=== PATIENT | female | born 1990 | race Asian ===

== ENCOUNTER 2022-06-03 16:49 | Outpatient (CLI) | payer OTHER ==
--- NOTE | 2022-06-03 19:23 | Ultrasound Report ---
PROCEDURE: Pelvic w/Transvaginal INDICATIONS: ENDOMETRIAL POLYP TECHNIQUE: Real-time scanning was performed of the pelvic organs, with image documentation. Additional endovagi nal scanning was necessary due to incomplete visualization of the adnexal and endometrial structures by transabdominal scanning. COMPARISON: None. FINDINGS: Uterus: Uterus is anteverted and normal in size at 89 x 4.5 x 6.6 cm. The myometrium is homogeneous . The endometrium measures 5.4 mm in combined thickness. There is a echogenic structure within the endometrium measuring 7 x 3 x 8 mm, possibly representing an endometrial polyp. No duplex flow is francisco ntified within the possible polyp. Ovaries: The right ovary measures 2.8 x 1.7 x 3.2 cm, with a calculated ovarian volume of 7.9 cc. T he left ovary measures 2.4 x 2.6 x 2.4 cm, with a calculated ovarian volume of 7.8 cc. The ovaries h ave a normal sonographic appearance. Less than 12 follicles can be seen in each ovary. No adnexal m asses are seen. Other: No pathologic free abdominal or pelvic fluid. IMPRESSION: Suspect small endometrial polyp measuring 8 mm in maximum diameter. Reviewed by: Kevon Lagos MD on 06/03/2022 7:21 PM PDT Approved by: Kevon Lagos MD on 06/03/2022 7:21 PM PDT Station ID: [id number]
== END 2022-06-03 16:50 | disposition home or self-care (01) ==
LOC: DI 16:49
PROVIDERS: ATTEND Nurse Practitioner
DX: N84.0 Polyp of corpus uteri (principal); N94.6 Dysmenorrhea, unspecified

== ENCOUNTER 2022-08-09 06:06 | Day surgery (SDC) | payer OTHER ==
[2022-08-09 06:44] LABS: HCG UR QUAL NEGATIVE
[2022-08-09] MEDS ORDERED: LACTATED RINGERS 1,000 ML IV ONE (06:50)
[2022-08-09] MEDS ORDERED: LIDOCAINE MPF 2%-EPI 1:200000 20 ML VIAL ONE (07:08)
[2022-08-09] MEDS ORDERED: SILVER NITRATE APPLICATOR TOP ONE (07:08)
[2022-08-09] MEDS ORDERED: BUPIVACAINE 0.5% PF 30 ML VIAL ONE (07:09)
--- NOTE | 2022-08-09 07:23 | ANESTHESIA ---
Pre-Anesthesia VS, & Labs - Diagnosis endometrial polyp - Procedure hysteroscopy, polypectomy Vital Signs: Temp Pulse Resp BP Pulse Ox O2 Flow Rate 36.6 C 87 14 122/73 100 0 08/09/22 06:41 08/09/22 06:41 08/09/22 06:41 08/09/22 06:41 08/09/22 06:41 08/09/22 06:41 Height: 5 ft 6 in Weight (kg): 57.2 kg Body Mass Index: 20.3 BMI Classification: Normal - NPO >8 hours - Is Patient ?: No Home Medications and Allergies Home Medications: Ambulatory Orders Multivitamin 1 each PO DAILY 08/01/22 Multivitamin 1 each PO DAILY 08/01/22 Allergies/Adverse Reactions: Allergies Allergy/AdvReac Type Severity Reaction Status Date / Time No Known Drug Allergies Allergy Verified 08/09/22 06:26 Anes History & Medical History - Anesthetic History Family history of Anesthesia Complications: Denies Family history of Malignant Hyperthermia: Denies - Medical History Cardiovascular: reports: None Pulmonary: reports: None Gastrointestinal: reports: None Urinary: reports: None Neuro: reports: None Musculoskeletal: reports: None Endocrine/Autoimmune: reports: None Blood Disorders: reports: None Skin: reports: None Smoking Status: Never smoker Psychosocial: reports: No issues indicated History of Cancer?: No - Surgical History Gynecologic: reports: section (x2) Exam General: Alert, Oriented x3, Cooperative, No acute distress Dental: WNL Mouth Openin Fingerbreadth Neck Mobility: Normal Mallampati classification: III Thyromental Distance: 4-6 cm Mental/Cognitive Status: Alert/Oriented X3, Normal for patient Plan Anesthesia Type: General (LMA vs TIVA with Face mask) Consent for Procedure(s) Verified and Reviewed: Yes Code Status: Attempt Resuscitation ASA classification: 1-Healthy patient Is this case an emergency?: No
[2022-08-09] MEDS ORDERED: fentaNYL 100 MCG/2 ML VIAL ONE (07:52)
[2022-08-09] MEDS ORDERED: MIDAZOLAM 2 MG/2 ML VIAL ONE (07:52)
[2022-08-09] MEDS ORDERED: LIDOCAINE MPF 2%-EPI 1:200000 20 ML VIAL SUBQ ONE (08:23)
[2022-08-09] MEDS ORDERED: BUPIVACAINE 0.5% PF 30 ML VIAL SUBQ ONE (08:24)
[2022-08-09] MEDS ORDERED: KETOROLAC 30 MG/ML VIAL ONE (08:32)
--- NOTE | 2022-08-09 08:44 | OPERATIVE REPORT ---
Operative Report - General Procedure Date: 08/09/22 Planned Procedure: Dilation and curettage Hysteroscopic polypectomy Pre-Op Diagnosis: Endometrial polyps Procedure Performed: Dilation and curettage Hysteroscopic polypectomy Post Op Diagnosis: Endometrial and endocervical polyps - Procedure Note Primary Surgeon: Micheline Zelaya DO Secondary Surgeon: Marcela Medrano NP; assistance requested for safe completion of procedure Anesthesia Provider: Roberta Logan CRNA Anesthesia Technique: Local (2% lidocaine with epinephrine/0.5 bupivacaine) Pathology: Endometrial and endocervical polyps Estimated Blood Loss (mL): 20 Indications: Endometrial polyps, heavy menstrual bleeding, infertility Findings: Endometrial and endocervical polyps Complications: None - Other Other Information/Narrative: Patient preferred to try completing procedure without general anesthesia. Patient brought to OR and placed in Sanju stirrups. Prepped and draped in sterile fashion. Bladder emptied with straight catheter. Time out performed. Speculum placed. Local analgesia infiltrated into cervix. Cervix dilated to accommodate Myosure hysteroscope. Myosure placed and aforementioned findings noted. Curettage performed with removal of polyps. Hysteroscope introduced again and polyps still noted. Lite device used to resect remaining polyps. Hemostasis. Hysteroscope removed. All instruments removed from vagina. Patient tolerated procedures well.
[2022-08-09 08:46] VITALS: BP 110/52
[2022-08-09] MEDS ORDERED: LACTATED RINGERS 400 ML IV ONE (09:05)
--- NOTE | 2022-08-09 11:02 | ANESTHESIA POST OP EVALUATION ---
Anesthesia Post Eval - Post Anesthesia Eval Vitals: Last Vital Signs Temp 37.6 C 08/09/22 08:47 Pulse 97 08/09/22 08:45 Resp 16 08/09/22 08:45 BP 110/52 L 08/09/22 08:45 Pulse Ox 97 08/09/22 08:45 O2 Flow Rate 0 08/09/22 06:41 CV Function Including HR & BP: Stable Pain Control: Satisfactory Nausea & Vomiting: Negative Mental Status: Baseline Respiratory Status: Airway Patent Hydration Status: Satisfactory Anesthesia Complications: None
== END 2022-08-09 06:07 | disposition home or self-care (01) ==
LOC: SDS 06:06
PROVIDERS: ATTEND Obstetrics & Gynecology
PROC: 0UDB8ZZ Extraction of Endometrium, Via Natural or Artificial Opening Endoscopic (ICD-10-PCS; 2022-08-09)
PROC: 0UB98ZZ Excision of Uterus, Via Natural or Artificial Opening Endoscopic (ICD-10-PCS; principal; 2022-08-09 07:30)
DX: N84.0 Polyp of corpus uteri (principal); N94.6 Dysmenorrhea, unspecified
CPT/HCPCS: 58558; 81025; J7120